=== PATIENT | male | born 1970 | race Caucasian/White ===

== ENCOUNTER 2021-09-24 09:31 | Emergency (ER) | payer BC ==
[~2021-09-24] VITALS: Ht 190.5 cm; Wt 113.4 kg
[2021-09-24 09:55] VITALS: BP 151/102
[2021-09-24] MEDS ORDERED: ARMOUR THYROID120 M1 PO (10:02)
[2021-09-24] MEDS ORDERED: CEPHALEXIN500 MG PO (11:19)
== END 2021-09-24 11:31 | disposition home or self-care (01) ==
LOC: M.ERS 09:31
DX: S61.411A Laceration without foreign body of right hand, initial encounter (principal); Z90.89 Acquired absence of other organs; Z79.899 Other long term (current) drug therapy; Z88.2 Allergy status to sulfonamides; W19.XXXA Unspecified fall, initial encounter; Y93.89 Activity, other specified; Y92.89 Other specified places as the place of occurrence of the external cause; Y99.8 Other external cause status